=== PATIENT | male | born 1980 | race Caucasian/White ===

== ENCOUNTER 2017-04-07 08:26 | Emergency (ER) | payer SELFPAY ==
[2017-04-07 08:49] VITALS: BP 163/102
[2017-04-07] MEDS ORDERED: DOXYcycline CAP(*) 100 MG PO ONE (09:58)
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
== END 2017-04-07 10:15 | disposition home or self-care (01) ==
LOC: UCEAST 08:26
DX: S80.262A Insect bite (nonvenomous), left knee, initial encounter (principal); W57.XXXA Bitten or stung by nonvenomous insect and other nonvenomous arthropods, initial encounter; Y93.9 Activity, unspecified; Y99.9 Unspecified external cause status; M77.12 Lateral epicondylitis, left elbow
CPT/HCPCS: 99212; A9270-GY; G0463

== ENCOUNTER 2017-07-07 07:10 | Emergency (ER) | payer MEDICAID ==
[2017-07-07 07:22] VITALS: BP 153/104
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
== END 2017-07-07 07:42 | disposition home or self-care (01) ==
LOC: UCEAST 07:10
DX: M54.42 Lumbago with sciatica, left side (principal); I10 Essential (primary) hypertension; Z88.6 Allergy status to analgesic agent
CPT/HCPCS: 99211; G0463

== ENCOUNTER 2017-11-03 09:56 | Emergency (ER) | payer SELFPAY ==
--- NOTE | 2017-11-03 11:47 | RAD ---
INDICATION: Right shoulder injury. TECHNIQUE: 4 views of the right shoulder were obtained. FINDINGS: There appears to be mild widening of the acromioclavicular joint. There are coracoclavicular space appears maintained. No fracture is seen. IMPRESSION: POSSIBLE AC SEPARATION.
[2017-11-03 12:33] VITALS: BP 162/100
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
== END 2017-11-03 12:32 | disposition home or self-care (01) ==
LOC: UCEAST 09:56
DX: S43.421A Sprain of right rotator cuff capsule, initial encounter (principal); W00.0XXA Fall on same level due to ice and snow, initial encounter; Y93.9 Activity, unspecified
CPT/HCPCS: 99213; G0463

== ENCOUNTER 2017-12-14 07:05 | Emergency (ER) | payer OTHER ==
[2017-12-14] MEDS ORDERED: Ketorolac INJ* 60 MG/2 ML VIAL IM ONE (07:37)
--- NOTE | 2017-12-14 08:21 | RAD ---
Indication: History of RIGHT AC joint separation November 02, 2017. Reinjury this morning. Limitation in abduction. Comparison: November 03, 2017 Technique: Internal rotation AP, external rotation Grashey, scapular Y, axillary views RIGHT shoulder Report: Unchanged mild transverse diastases at the AC joint. Normal coracoclavicular distance. Mild subchondral sclerosis and cystic change at the distal margin of the clavicle. Normal glenohumeral joint alignment. Negative for fracture. Unremarkable soft tissue contours. IMPRESSION: Unchanged finding of low-grade AC joint separation. Mild degenerative arthropathy at the AC joint.
[2017-12-14 08:57] VITALS: BP 171/100
--- NOTE | 2017-12-14 18:06 | ED ---
Mahamed Puga Nilda, scribed for Warren Akers MD on 12/14/17 at 0730 . Upper Extremity Pain - HPI Summary HPI Summary: This patient is a 37 year old M presenting to [facility] with a chief complaint of constant severe right shoulder pain and limited ROM s/p feeling AC tear while moving a box this morning. The patient rates the pain 8/10 in severity. Symptoms aggravated by movement and alleviated by rest. Pt states he AC of R-shoulder a couple weeks ago. He was seen by PCP for his shoulder, but denies seeing Ortho or PT since pain had decreased. Pt states he thought his shoulder was strengthening and healing with exercise. - History of Current Complaint Chief Complaint: EDShoulderClavicleInj Stated Complaint: SHOULER INJURY Time Seen by Provider: 12/14/17 07:14 Hx Obtained From: Patient Mechanism Of Injury: Other - moving box and felt AC tear Onset/Duration: Started Minutes Ago, Still Present Timing: Constant Severity Currently: Severe Pain Location: Shoulder - right Aggravating Factor(s): Movement Alleviating Factor(s): Rest Associated Signs & Symptoms: Positive: Other - limited R-shoulder ROM secondary to pain. Related History: Similar Episode/Dx As - a few weeks ago tore AC - Allergies/Home Medications Allergies/Adverse Reactions: Allergies Allergy/AdvReac Type Severity Reaction Status Date / Time Acetaminophen [From Tylenol] AdvReac Mild Vomiting Verified 11/03/17 10:33 PMH/Surg Hx/FS Hx/Imm Hx Endocrine/Hematology History: Denies: Hx Diabetes, Hx Thyroid Disease Cardiovascular History: Denies: Hx Hypertension Respiratory History: Denies: Hx Asthma, Hx Chronic Obstructive Pulmonary Disease (COPD) GI History: Denies: Hx Ulcer Infectious Disease History: No Infectious Disease History: Denies: Hx Clostridium Difficile, Hx Hepatitis, Hx Human Immunodeficiency Virus (HIV), Hx of Known/Suspected MRSA, Hx Shingles, Hx Tuberculosis, Hx Known/ Suspected VRE, Hx Known/Suspected VRSA, History Other Infectious Disease, Traveled Outside the [place] in Last 30 Days - Family History Known Family History: Positive: Cardiac Disease - unsure, Hypertension Negative: Diabetes - Social History Alcohol Use: None Substance Use Type: Reports: None Smoking Status (MU): Never Smoked Tobacco Review of Systems Negative: Shortness Of Breath Positive: Decreased ROM - R-shoulder secondary to pain, Other - pain in R- shoulder All Other Systems Reviewed And Are Negative: Yes Physical Exam - Summary Physical Exam Summary: VITAL SIGNS: Reviewed. GENERAL: Patient is a well-developed and nourished male who is lying comfortable in the stretcher. Patient is not in any acute respiratory distress. HEAD AND FACE: No signs of trauma. No ecchymosis, hematomas or skull depressions. No sinus tenderness. EYES: PERRLA, EOMI x 2, No injected conjunctiva, no nystagmus. EARS: Hearing grossly intact. Ear canals and tympanic membranes are within normal limits. MOUTH: Oropharynx within normal limits. NECK: Supple, trachea is midline, no adenopathy, no JVD, no carotid bruit, no c- spine tenderness, neck with full ROM. CHEST: Symmetric, no tenderness at palpation LUNGS: Clear to auscultation bilaterally. No wheezing or crackles. CVS: Regular rate and rhythm, S1 and S2 present, no murmurs or gallops appreciated. ABDOMEN: Soft, non-tender. No signs of distention. No rebound no guarding, and no masses palpated. Bowel sounds are normal. EXTREMITIES: Decreased ROM in right shoulder secondary to pain, good capillary refill, good pulse, good strength NEURO: Alert and oriented x 3. No acute neurological deficits. Speech is normal and follows commands. SKIN: Dry and warm Triage Information Reviewed: Yes Vital Signs On Initial Exam: Initial Vitals Temp Pulse Resp BP Pulse Ox 98.4 F 95 15 180/100 98 12/14/17 07:16 12/14/17 07:16 12/14/17 07:16 12/14/17 07:16 12/14/17 07:16 Vital Signs Reviewed: Yes Diagnostics - Vital Signs Vital Signs Temp Pulse Resp BP Pulse Ox 12/14/17 07:16 98.4 F 95 15 180/100 98 - Laboratory Lab Statement: Any lab studies that have been ordered have been reviewed, and results considered in the medical decision making process. - Radiology Shoulder XR Radiology Interpretation Completed By: Radiologist - Shoulder XR, per radiologist, reveals unchanged finding of low-grade AC joint separation. Mild degenerative arthorpathy at the AC joint. Dr. Akers has reviewed this radiology report. Re-Evaluation - Re-Evaluation First Eval Re-Evaluation Time: 08:45 Comment: Reviewed D/C plan. Pt understands and is agreeable to D/C. Course/Dx - Course Assessment/Plan: This patient is a 37 year old M presenting to [facility] with a chief complaint of constant severe right shoulder pain and limited ROM s/p feeling "AC tear" while moving a box this morning. The patient rates the pain 8/ 10 in severity. Symptoms aggravated by movement and alleviated by rest. Pt states he AC of R-shoulder a couple weeks ago. He was seen by PCP for his shoulder, but denies seeing Ortho or PT since pain had decreased. Pt states he thought his shoulder was strengthening and healing with exercise. Pending shoulder XR. Shoulder XR, per radiologist, reveals unchanged finding of low- grade AC joint separation. Mild degenerative arthropathy at the AC joint. Dr. Akers has reviewed this radiology report. Pt found to have low grade AC joint separation. Pt was given Toradol. Pt feels a little better in ED. Pt is in sling. He will be D/C home with follow up with orthopedics and given prescription for Naproxen. Pt understands and is agreeable with this plan. - Diagnoses Differential Diagnosis/HQI/PQRI: Positive: Arthritis, Bursitis, Contusion, Fracture (Closed), Strain, Sprain Provider Diagnoses: Acromioclavicular joint separation Discharge - Discharge Plan Condition: Stable Disposition: HOME Prescriptions: Naproxen [Naproxen 500 mg] 500 mg PO Q8H PRN #20 tab PRN Reason: Pain Patient Education Materials: Acromioclavicular Separation (ED) Forms: *Work Release Referrals: Jameel Chamorro MD [Medical Doctor] - 3 Days Additional Instructions: RETURN TO THE EMERGENCY DEPARTMENT FOR CHANGING OR WORSENING SYMPTOMS. The documentation as recorded by the Mahamed ruffin Nilda accurately reflects the service I personally performed and the decisions made by Oswald smith Walter, MD.
== END 2017-12-14 08:56 | disposition home or self-care (01) ==
LOC: ED 07:05
DX: S43.101A Unspecified dislocation of right acromioclavicular joint, initial encounter (principal); X58.XXXA Exposure to other specified factors, initial encounter; Z88.6 Allergy status to analgesic agent
CPT/HCPCS: 96372; 99282; J1885

== ENCOUNTER 2018-04-16 11:12 | Emergency (ER) | payer SELFPAY ==
[2018-04-16 11:28] VITALS: BP 169/118
--- NOTE | 2018-04-16 13:00 | UC ---
Rectal Pain HPI - HPI Summary HPI Summary: 37 yo male states that he went to sit down on a toilet bowel at work today and has BRBPR No stool was passed He states that he has felt perianal irritation x days and felt it was due to the rough toilet paper at work NO ABD PAIN NO CONSTIPATION NO Hx HEMORRHOIDs NO N/V/D not lightheaded or weak no F/C - History Of Current Complaint Chief Complaint: UCAbdominalPain Stated Complaint: RECTAL BLEEDING Time Seen by Provider: 04/16/18 11:51 Hx Obtained From: Patient Onset/Duration: Sudden Onset Timing: Constant Severity Initially: Moderate Severity Currently: Moderate Pain Intensity: 4 Pain Scale Used: 0-10 Numeric Location Of Pain: Gluteal - Had had left gluteal pain x 3 days/no swelling/ asbscess Character: Itching Aggravating Factor(s): Sitting Alleviating Factor(s): Nothing Associated Signs And Symptoms: Positive: Blood W/O Stool - Allergies/Home Medications Allergies/Adverse Reactions: Allergies Allergy/AdvReac Type Severity Reaction Status Date / Time acetaminophen Allergy Vomiting Verified 04/16/18 11:29 Home Medications: Home Medications Ibuprofen TAB* [Advil TAB*] 200 mg PO Q6H PRN 04/16/18 [History Confirmed ] PMH/Surg Hx/FS Hx/Imm Hx Previously Healthy: Yes - Surgical History Surgical History: None - Family History Known Family History: Positive: Cardiac Disease - unsure, Hypertension Negative: Diabetes - Social History Alcohol Use: Rare Substance Use Type: None Smoking Status (MU): Former Smoker When Did the Patient Quit Smoking/Using Tobacco: 20 yrs ago Review of Systems Constitutional: Negative Skin: Negative Eyes: Negative ENT: Negative Respiratory: Negative Cardiovascular: Negative Gastrointestinal: Other - rectal bleeding Genitourinary: Negative Motor: Negative Neurovascular: Negative Musculoskeletal: Negative Neurological: Negative Psychological: Negative Is Patient Immunocompromised?: No All Other Systems Reviewed And Are Negative: Yes Physical Exam Triage Information Reviewed: Yes Appearance: Well-Appearing, No Pain Distress, Well-Nourished Vital Signs: Initial Vital Signs Temp 95.4 F 04/16/18 11:22 Pulse 90 04/16/18 11:22 Resp 16 04/16/18 11:22 BP 169/118 04/16/18 11:22 Pulse Ox 95 04/16/18 11:22 Vital Signs Reviewed: Yes Eyes: Positive: Conjunctiva Clear ENT: Positive: Hearing grossly normal, Pharynx normal, TMs normal, Uvula midline. Negative: Pharyngeal erythema, Nasal congestion, Nasal drainage, Tonsillar swelling, Tonsillar exudate, Trismus, Muffled voice, Hoarse voice Neck: Positive: Supple, Nontender, No Lymphadenopathy Respiratory: Positive: Lungs clear, Normal breath sounds, No respiratory distress, No accessory muscle use Cardiovascular: Positive: RRR, No Murmur Abdomen Description: Positive: Nontender, No Organomegaly, Soft, Other: - no abscess, suspect hemorrhoid,. Negative: CVA Tenderness (R), CVA Tenderness (L) Musculoskeletal: Positive: No Edema Neurological: Positive: Alert Psychological Exam: Normal Skin Exam: Normal Rectal Pain Course/Dx - Course Course Of Treatment: I advised patient I was not 100% sure of the diagnosis, suggested GI evaluation for anoscopy or sigmoidoscopy - Differential Dx/Diagnosis Provider Diagnoses: bright red rectal bleeding of uncertain cause Discharge - Sign-Out/Discharge Documenting (check all that apply): Discharge/Admit/Transfer - Discharge Plan Condition: Stable Disposition: HOME Prescriptions: Hydrocortisone SUPP* [Anusol HC Supp*] 25 mg NH BID #14 supp Patient Education Materials: Hemorrhoids (ED), Rectal Bleeding (ED) Forms: *Work Release Referrals: [facility] [place] PHYSICIAN REFERRAL [Outside] - 2 Weeks (Your blood pressure is high today. It may be due to anxiety over today's complaint. I suggest you find a concrete pavement installer and get it followed up) Joe Sparrow MD [Medical Doctor] - As Soon As Possible (Dr Sparrow is not precision aircraft systems assembler today but I suggest you call office Tues AM and request first available appt) Additional Instructions: to ER for worsening rectal bleeding, abd pain, fever severe buttock pain or swelling - Billing Disposition and Condition Condition: STABLE Disposition: HOME Images Perineum Male: 1 - bluish area/oozing blood/suspect hemoorhoid
== END 2018-04-16 12:42 | disposition home or self-care (01) ==
LOC: UCEAST 11:12
DX: K62.5 Hemorrhage of anus and rectum (principal); Z88.6 Allergy status to analgesic agent; Z87.891 Personal history of nicotine dependence
CPT/HCPCS: 99212; G0463

== ENCOUNTER 2018-05-15 09:31 | Day surgery (SDC) | payer OTHER ==
--- NOTE | 2018-04-14 06:56 | HP ---
PREOPERATIVE HISTORY AND PHYSICAL: DATE OF ADMISSION/SURGERY: 04/24/18 DATE OF OFFICE VISIT: 04/13/18 ATTENDING SURGEON: Rossi Fang MD * (DICTATED BY EZRA SANDERS) PROCEDURE: Right shoulder arthroscopic decompression, debridement, subpectoral biceps tenodesis and excision distal clavicle. CHIEF COMPLAINT: Right shoulder. HISTORY OF PRESENT ILLNESS: Brandon is a 37-year-old male who presents to the clinic for right shoulder pain due to AC arthritis and biceps tendonitis and impingement. He failed conservative measures and therefore agreed to undergo a right shoulder arthroscopic decompression, debridement, and subpectoral biceps tenodesis, excision of distal clavicle with Dr. Fang on 04/24/18. PAST MEDICAL HISTORY: Hypertension, history of MRSA 6 years ago. PAST SURGICAL HISTORY: Denies prior surgery. MEDICATION: Ibuprofen 200 mg 2 to 3 tabs every 6 hours as needed for pain. ALLERGIES: TYLENOL. FAMILY HISTORY: Positive for hypertension and cancer. SOCIAL HISTORY: He lives with his spouse. He denies tobacco or alcohol use. He is right hand dominant. REVIEW OF SYSTEMS: A 14-point review of systems was reviewed with the patient. Positive for current complaint; otherwise, negative. He does have a history of MRSA 6 years ago. He denies chest pain, shortness of breath, fever, chills, history of bleeding disorder, history of DVT or PE. PHYSICAL EXAMINATION GENERAL: A 37-year-old well-developed, well-nourished female, in no acute distress. Alert and oriented x3. Appropriate mood and affect. Appropriate balance and coordination of the upper extremities. VITAL SIGNS: Height 69, weight 237, blood pressure 140/84, respiratory rate 18 , temperature 97, BMI 35. HEENT: Normocephalic, atraumatic. PERRLA. Throat: Clear. NECK: Supple. PULMONARY: Lungs clear to auscultation bilaterally. No wheezing, rhonchi, or rales. CARDIO: Regular rate and rhythm. S1, S2. No murmurs, gallops, or rubs. No edema. ABDOMEN: Positive bowel sounds. Soft, nontender. NEUROLOGIC: Alert and oriented x3. Cranial nerves grossly intact. MUSCULOSKELETAL: Right upper extremity, skin is intact. No warmth or erythema. Tender over the bicipital groove, mild tender over the subacromial space in the AC joint. Forward flexion 160, abduction 150. External rotation 35, internal rotation T8. +5/5 strength with rotator cuff testing with mild pain. Positive impingement, Speeds, Kaufman-Julius, [place]. +2 radial pulse. Sensation is intact to light touch distally. DIAGNOSTIC STUDIES: X-rays and MRIs reveal grade 2 AC joint separation, impingement fluid in the bicipital groove. IMPRESSION: Right shoulder impingement, biceps tendonitis and acromioclavicular joint arthritis. PLAN: The patient is scheduled to undergo a right shoulder arthroscopic decompression, debridement, subpectoral biceps tenodesis, and excision distal clavicle with Dr. Fang on 04/24/18. He will follow up in 10 to 14 days postop for followup and suture removal. Oxycodone will be used for postop pain management. EZRA SANDERS [id number]/[facility] #: [id number] MTDSoraya
--- NOTE | 2018-05-09 21:03 | HP ---
HISTORY AND PHYSICAL UPDATE: DATE OF ADMISSION/SURGERY: 05/15/18 [facility] DATE OF OFFICE VISIT: 05/09/18 ATTENDING SURGEON: Rossi Fang MD * (DICTATED BY EZRA SANDERS) PROCEDURE: Right shoulder arthroscopic decompression, debridement, subpectoral biceps tenodesis, and excision of distal clavicle. CHIEF COMPLAINT: Right shoulder pain. HISTORY OF PRESENT ILLNESS: Brandon is a 37-year-old male, who presents to the clinic for right shoulder pain due to AC joint arthritis, biceps tendonitis and impingement. He failed conservative measures and therefore agreed to undergo right shoulder arthroscopic decompression, debridement, subpectoral biceps tenodesis, and excision of distal clavicle with Dr. Fang on 05/15/18. PAST MEDICAL HISTORY: Hypertension, history of MRSA 6 years ago. PAST SURGICAL HISTORY: Denies prior surgeries. MEDICATIONS: Ibuprofen 200 mg 2 to 3 tabs every 6 hours as needed for pain. ALLERGIES: TYLENOL. FAMILY HISTORY: Positive for hypertension and cancer. SOCIAL HISTORY: He lives with his spouse. 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 He denies tobacco or alcohol use. He is right-hand dominant. REVIEW OF SYSTEMS: A 14-point review of systems was reviewed with the patient. Positive for current complaint, otherwise negative. He does have a history of MRSA 6 years ago. Denies chest pain, shortness of breath, fever, chills, history of bleeding disorder, history of DVT or PE. PHYSICAL EXAMINATION GENERAL: A 37-year-old well-developed, well-nourished male, in no acute distress. Alert and oriented x3. Appropriate mood and affect. Appropriate balance and coordination of the upper extremities. VITAL SIGNS: Height 69, weight 237, blood pressure 124/60, respiratory rate 18 , BMI 35.0. HEENT: Normocephalic, atraumatic. PERRLA. Throat clear. NECK: Supple. PULMONARY: Lungs are clear to auscultation bilaterally. No wheezing, rhonchi, or rales. CARDIO: Regular rate and rhythm. S1, S2. No murmurs, gallops, or rubs. No edema. ABDOMEN: Positive bowel sounds. Soft, nontender. NEURO: Alert and oriented x3. Cranial nerves grossly intact. Sensation intact to light touch. MUSCULOSKELETAL: Right upper extremity, skin is intact. No warmth or erythema. Tenderness over the bicipital groove, mild tenderness over the subacromial space in the AC joint. Forward flexion to 160, abduction to 150, external rotation to 75, internal rotation to T8. +5/5 strength with rotator cuff testing with mild pain. Positive impingement, Speed, Kaufman-Julius, [place]. +2 radial pulse. Sensation intact to light touch distally. DIAGNOSTIC STUDIES: X-ray and MRI revealed grade 2 AC joint separation, impingement and fluid in the bicipital groove. IMPRESSION: Right shoulder impingement, biceps tendonitis, and AC joint arthritis. PLAN: The patient is scheduled to undergo a right shoulder arthroscopic decompression, debridement, subpectoral biceps tenodesis, and excision of distal clavicle with Dr. Fang on 05/15/18. He will follow up 10 to 14 days postop for followup and suture removal. Oxycodone will be used for postop pain management and Keflex for antibiotic prophylaxis. He will start therapy 10 days after surgery. He was given a script and protocol today in clinic. EZRA SANDERS [id number]/[facility] #: [id number] JEANNE
[~2018-05-15 09:31] MED LIST: Buffered Lidocaine 0.9% SYRIN* 5 ML/SYR SYRINGE INTRADERM ONE; Dexamethasone IV* 4 MG/ML 1 ML (4 MG) IV SLOW PU ONE; Famotidine IV* 10 MG/ML 2 ML (20 mg) IV ONE; Ondansetron ODT TAB* 4 MG PO ONE
[2018-05-15] MEDS ORDERED: Famotidine IV* 10 MG/ML 2 ML (20 mg) ONE (09:43)
[2018-05-15] MEDS ORDERED: Dexamethasone IV* 4 MG/ML 1 ML (4 MG) ONE (09:43)
[2018-05-15] MEDS ORDERED: ceFAZolin 2 GM PREMIX (*) 2 GM/50 ML BAG IVPB ONE (09:43)
[2018-05-15] MEDS ORDERED: Ondansetron ODT TAB* 4 MG ONE (09:44)
[2018-05-15] MEDS ORDERED: Bupivacaine 0.5% SDV PF* 30ML VIAL ONE (10:14)
[2018-05-15] MEDS ORDERED: fentaNYL* 50 MCG/ML 2 ML VIAL (100 MCG VIAL) ONE ×2 (10:34→10:58)
[2018-05-15] MEDS ORDERED: Midazolam* 1 MG/ML 5 ML VIAL (5 MG) ONE (10:34)
[2018-05-15] MEDS ORDERED: ROPIVACAINE 5 MG/ML 30 ML BTL (0.5%) ONE (10:34)
[2018-05-15] MEDS ORDERED: Atracurium* 10 MG/ML 10 ML VIAL ONE (10:35)
[2018-05-15] MEDS ORDERED: Ondansetron INJ* 2 MG/ML VIAL IV PRN (11:30)
[2018-05-15] MEDS ORDERED: oxyCODONE TAB* 5 MG TAB PO PRN (11:30)
[2018-05-15] MEDS ORDERED: DiMENhydriNATE IV* 50 MG/ML VIAL IV PUSH PRN (11:30)
[2018-05-15] MEDS ORDERED: fentaNYL* 50 MCG/ML 2 ML VIAL (100 MCG VIAL) IV PRN (11:30)
[2018-05-15] MEDS ORDERED: Naloxone* 0.4 MG/ML 1 ML VIAL IV PRN (11:30)
[2018-05-15] MEDS ORDERED: HYDROmorphone INJ* 1 MG/ML CARPUJECT SYRINGE IV PRN (11:30)
[2018-05-15] MEDS ORDERED: methylPREDNISolone ACETATE 80* 80 MG/ML 1 ML VIAL ONE (11:42)
[2018-05-15] MEDS ORDERED: DiMENhydriNATE IV* 50 MG/ML VIAL ONE (12:37)
[2018-05-15 13:14] VITALS: BP 1170/97
--- NOTE | 2018-05-16 10:57 | OP ---
DATE OF OPERATION: 05/15/18 - [facility] DATE OF : 78 SURGEON: Rossi Fang MD ELECTRIFICATION ADVISER: EZRA Garzon. An imaging assistant was needed for the entirety of the case to help with positioning, retraction, and was utilized all portions of the case. ANESTHESIOLOGIST: Dr. Miller. ANESTHESIA: Interscalene block. PRE-OP DIAGNOSES: Right shoulder impingement, acromioclavicular joint arthritis , and bicipital tendonitis. POST-OP DIAGNOSES: Right shoulder impingement, acromioclavicular joint arthritis, and bicipital tendonitis. OPERATIVE PROCEDURE: Right shoulder arthroscopy with: 1. Extensive glenohumeral debridement including debridement of the anterior, superior, and posterior labrum. 2. Subacromial decompression with acromioplasty. 3. Distal clavicle excision. 4. Subpectoral biceps tenodesis. 5. Subacromial injection with 80 mg of Depo-Medrol. COMPLICATIONS: None. ESTIMATED BLOOD LOSS: Minimal. IMPLANTS USED: [place] and Nephew 2.8 mm Q-Fix. INDICATIONS: Brandon Muse is a 37-year-old male who has had persistent shoulder pain from work-related injury. He has failed conservative management including physical therapy, anti-inflammatories, ice, heat and injection. He is elected to proceed with surgery. Risks and benefits of surgery were discussed at length included, but not limited to bleeding, infection, damage to nerves, vessels, surrounding structures, wound nonhealing, persistent pain, need for further surgery, scarring, stiffness, incomplete relief of symptoms, risk of anesthesia. DESCRIPTION OF PROCEDURE: The patient was greeted in the preoperative area by the attending surgeon. Correct extremity was marked and consent was confirmed. The patient was then brought back to the operating suite where he was placed in the supine position on the operating table. He then underwent interscalene nerve block by the anesthesiologist after which he was appropriately positioned in the left lateral decubitus position with all bony prominences padded. An axillary roll was placed and secured with a pegboard. Right arm was draped unsterilely with 10 pounds of traction. The left shoulder was then prepped and draped in the usual sterile fashion beginning with chlorhexidine soap, scrub, and alcohol wipe and a final prep with ChloraPrep. After appropriate surgical pause indicating side, site, procedure, and administration of antibiotics, standard postero-lateral portal was made sharply with 11 blade. The scope was introduced into the joint, joint was examined. There was abundant hyperemia and erythema in the joint. There was evidence of some mild fraying of the superior labrum, but the biceps tendon itself had longitudinal tearing and was poor quality. The supraspinatus was intact. Infraspinatus was intact. Subscap was intact. Inferior recess was intact but there was abundant synovitis and inflammation, tearing in the anterior, posterior, and superior labrum. The anterior portal was made in an outside fashion. Shaver was used to debride back the anterior, posterior, and superior labrum. Glenohumeral joint had grade 0 to 1 changes. The biceps was then tenotomized for later tenodesis. The scope was positioned in the subacromial space and subacromial space was examined. There was mild amount of bursitis mostly at the lateral and posterior aspect but the rotator cuff appeared to be intact. The lateral portal was made in an outside-in fashion. Shaver was used to debride back the bursa laterally and posteriorly. The undersurface of the acromion had anterolateral spur. This was debrided back using 4-0 oval jade to the level of the AC joint. Once the acromioplasty was complete, attention was directed to the distal clavicle. The jade was brought into the anterior portal. The distal 8 mm of the clavicle were then removed under arthroscopic visualization with care to prevent any damage to the CC ligaments. Final images were obtained. There was calcified disc that was also removed at the AC joint. All loose fluid and debris was removed from the portion of the case. Attention was directed back to the subacromial space. An 18- gauge needle was placed under arthroscopic visualization. All fluid and debris was removed. Attention was directed to the biceps. The bed was air planed to the right side. The anterior aspect of the shoulder was prepped again using ChloraPrep. A 15-blade was used to make an incision in line of the biceps tendon encompassing the inferior two thirds was the pec. Soft tissues were carefully dissected to expose the pec tendon. The remainder of the dissection was done bluntly. The pec was then elevated and the bicipital groove was palpated. The biceps was found and brought through through the wound and found to have abundant synovitis, tendinosis, and tendonitis. The groove was then prepared in the usual fashion with electrocautery device with red ball rasp and osteotome. Q-Fix guide was then placed. This allowed for bony bleeding bed. The Q-Fix drill guide was then placed and drilled unicortically. The Q-Fix was deployed with excellent purchase. The sutures were then passed through the tendon approximately 1 cm proximal to the musculotendinous junction in a Kavin-Robin type configuration. The excess biceps was excised and the biceps were shuttled back to the wound. The wounds were copiously irrigated with sterile saline. The anterior wound was closed in layers using 2-0 Vicryl, 3-0 Monocryl. The portals were closed with 3-0 nylon. Sterile dressings were applied. The anterior wound was injected with 0.5% Marcaine. Sterile dressings were applied. Cryo/Cuff and UltraSling were applied. He was awoken from anesthesia and transferred to PACU in stable condition. POSTOPERATIVE PLAN: He will be nonweightbearing. He will be in the sling for 4 weeks. He will be discharged on pain medication, antibiotics. I will see the patient back in 10 to 14 days. DVT prophylaxis considered, but deferred due to no previous personal or family history. [id number]/[facility] #: [id number] [facility]ALSoraya
== END 2018-05-15 12:36 | disposition home or self-care (01) ==
LOC: OREAST 09:31
PROVIDERS: ATTEND Orthopaedic Surgery
DX: M75.41 Impingement syndrome of right shoulder (principal); M75.21 Bicipital tendinitis, right shoulder; M19.011 Primary osteoarthritis, right shoulder; S43.51XA Sprain of right acromioclavicular joint, initial encounter; S46.101A Unspecified injury of muscle, fascia and tendon of long head of biceps, right arm, initial encounter; X58.XXXA Exposure to other specified factors, initial encounter; Y93.89 Activity, other specified; Y92.89 Other specified places as the place of occurrence of the external cause; Y99.9 Unspecified external cause status; G89.18 Other acute postprocedural pain; I10 Essential (primary) hypertension
CPT/HCPCS: 88304; A9270-GY; C1776; J0690; J1040; J1100; J1240; J2250; J2795; J3010

== ENCOUNTER 2019-02-02 13:32 | Emergency (ER) | payer OTHER ==
[2019-02-02 14:01] VITALS: BP 151/98
--- NOTE | 2019-02-02 14:10 | UC ---
Shoulder Pain HPI - HPI Summary HPI Summary: pt presents with c/o chronic right shoulder pain s/p rotator cuff repair last summer(2017) by Dr. Alvarado. - History of Current Complaint Chief Complaint: UCUpperExtremity Stated Complaint: R SHOULDER INJURY Time Seen by Provider: 02/02/19 14:03 Hx Obtained From: Patient Onset/Duration: Gradual Onset, Lasting Days, Still Present Timing: Constant Severity Initially: Mild Severity Currently: Moderate Location Of Pain: Is Discrete @ - rught shoulder Pain Intensity: 8 Character: Dull, Aching Aggravating Factor(s): Movement Alleviating Factor(s): Rest Associated Signs And Symptoms: Positive: Negative Related History: Dominant Hand Right - Risk Factors Non-Orthopedic Risk Factor: Negative DVT Risk Factors: Negative Septic Arthritis Risk Factor: Negative - Allergies/Home Medications Allergies/Adverse Reactions: Allergies Allergy/AdvReac Type Severity Reaction Status Date / Time acetaminophen Allergy Intermediate Vomiting Verified 02/02/19 13:56 PMH/Surg Hx/FS Hx/Imm Hx Previously Healthy: Yes - Surgical History Surgical History: Yes Surgery Procedure, Year, and Place: shoulder surgery rt 2018 - Family History Known Family History: Positive: Cardiac Disease - unsure, Hypertension Negative: Diabetes - Social History Occupation: Employed Full-time Lives: With Family Alcohol Use: Rare Substance Use Type: Marijuana Substance Use Comment - Amount & Last Used: weekly Smoking Status (MU): Former Smoker Amount Used/How Often: smoked for 14 years , 1 pack per week Have You Smoked in the Last Year: No When Did the Patient Quit Smoking/Using Tobacco: 2000 Review of Systems All Other Systems Reviewed And Are Negative: Yes Constitutional: Positive: Negative Skin: Positive: Negative Eyes: Positive: Negative ENT: Positive: Negative Respiratory: Positive: Negative Cardiovascular: Positive: Negative Gastrointestinal: Positive: Negative Genitourinary: Positive: Negative Motor: Positive: Decreased ROM - right shoulder, Weakness - right shoulder Neurovascular: Positive: Negative Musculoskeletal: Positive: Arthralgia, Decreased ROM, Myalgia Neurological: Positive: Negative Psychological: Positive: Negative Is Patient Immunocompromised?: No Physical Exam Triage Information Reviewed: Yes Appearance: Well-Appearing Vital Signs: Initial Vital Signs Temp 97.9 F 02/02/19 13:49 Pulse 89 02/02/19 13:49 Resp 16 02/02/19 13:49 BP 151/98 02/02/19 13:49 Pulse Ox 99 02/02/19 13:49 Vital Signs Reviewed: Yes Eye Exam: Normal ENT Exam: Normal Neck exam: Normal Respiratory: Positive: No respiratory distress Musculoskeletal: Positive: Strength Limited @ - right shoulder, ROM Limited @ - right shoulder Neurological Exam: Normal Psychological Exam: Normal Skin Exam: Normal Shoulder Course/Dx - Course Course Of Treatment: Pt reports he is seeking a work note and has an appointment with Dr. alvarado on - Differential Dx/Diagnosis Differential Diagnosis/HQI/PQRI: Contusion, Rotator Cuff Injury, Sprain Provider Diagnosis: Chronic right shoulder pain Discharge - Sign-Out/Discharge Documenting (check all that apply): Patient Departure All imaging exams completed and their final reports reviewed: No Studies - Discharge Plan Condition: Stable Disposition: HOME Prescriptions: Cyclobenzaprine TAB* [Flexeril 10 MG TAB*] 10 mg PO TID PRN #15 tab PRN Reason: Pain predniSONE TAB* [Deltasone 10 MG TAB*] 30 mg PO DAILY #12 tab Patient Education Materials: Shoulder Pain (ED) Forms: *Work Release Referrals: Jameel Phillips MD [Primary Care Provider] - If Needed Rossi Alvarado MD [Medical Doctor] - As Soon As Possible - Billing Disposition and Condition Condition: STABLE Disposition: Home
== END 2019-02-02 14:19 | disposition home or self-care (01) ==
LOC: UCEAST 13:32
DX: M25.511 Pain in right shoulder (principal); G89.29 Other chronic pain; Z87.891 Personal history of nicotine dependence; Z88.8 Allergy status to other drugs, medicaments and biological substances
CPT/HCPCS: 99212; G0463

== ENCOUNTER 2019-08-29 09:10 | Emergency (ER) | payer OTHER ==
--- NOTE | 2019-08-29 09:53 | UC ---
Cardiac HPI - HPI Summary HPI Summary: Onset of chest pain x 4 days ago at work, present steadily, sometimes worse. Pain is sharp and worse with a deep breath. Hx of hypertension, stopped lisinopril -HCTZ about a month ago because of lightheadedness and dizziness. Takes propranolol for BP and suppression of arrhythmia. 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 He has gained considerable weight over the past several years--states close to 100 pounds. he does not know his cholesterol level, has not smoked, has FH of hypertension. - History of Current Complaint Chief Complaint: UCCardiac Stated Complaint: CHEST PAIN Time Seen by Provider: 08/29/19 09:42 Hx Obtained From: Patient Onset/Duration: Gradual Onset, Lasting Days - 4 Timing: Constant Initial Severity: Mild Current Severity: Mild Pain Intensity: 0 Chest Pain Location: Left Lateral Character: Irregular - hx of arrhythmia and some extra beats historically. PVC observed while here x 1 only, Sharp/Stabbing Aggravating Factor(s): Deep Breaths Alleviating Factor(s): Rest Associated Signs & Symptoms: Positive: Chest Pain, Anxiety - admits to anxiety, has addressed with PMD in the past., SOB - on occasion. Negative: Headaches, Numbness, Weakness, Cough - Risk Factors Pulmonary Embolism Risk Factors: Negative Cardiac Risk Factors: Hypertension, Family History Atrial Fibrillation: Hypertension AMI/ACS Risk Factors: Obesity, Hypertension - Allergy/Home Medications Allergies/Adverse Reactions: Allergies Allergy/AdvReac Type Severity Reaction Status Date / Time acetaminophen Allergy Intermediate Vomiting Verified 02/02/19 13:56 Home Medications: Home Medications Propranolol HCl [Propranolol HCl ER] 80 mg PO DAILY 08/29/19 [History Confirmed 08/29/19] PMH/Surg Hx/FS Hx/Imm Hx - Additional Past Medical History Additional PMH: obesity Cardiovascular History: Hypertension - Surgical History Surgical History: Yes Surgery Procedure, Year, and Place: shoulder surgery rt 2018 - Family History Known Family History: Positive: Hypertension Negative: Diabetes - Social History Occupation: Employed Full-time Lives: Dormitory/Roommates Alcohol Use: Rare Substance Use Type: Marijuana Substance Use Comment - Amount & Last Used: rare Smoking Status (MU): Former Smoker Amount Used/How Often: smoked for 14 years , 1 pack per week Have You Smoked in the Last Year: No When Did the Patient Quit Smoking/Using Tobacco: 2000 Review of Systems All Other Systems Reviewed And Are Negative: Yes Constitutional: Positive: Negative Skin: Positive: Negative Eyes: Positive: Negative ENT: Positive: Negative Respiratory: Positive: Shortness Of Breath - at times, not currently Cardiovascular: Positive: Palpitations - has hx of PVC's, uses propranolol partly to suppress this., Chest Pain Gastrointestinal: Negative: Vomiting, Nausea Genitourinary: Positive: Negative Motor: Positive: Negative Neurovascular: Positive: Negative Musculoskeletal: Positive: Negative Neurological: Negative: Headache, Weakness Psychological: Positive: Negative Is Patient Immunocompromised?: No Physical Exam Triage Information Reviewed: Yes Appearance: No Pain Distress, Obese, Other: - anxious mood Vital Signs: Initial Vital Signs Temp 98.4 F 08/29/19 09:17 Pulse 81 08/29/19 09:17 Resp 18 08/29/19 09:17 BP 170/97 08/29/19 09:17 Pulse Ox 98 08/29/19 09:17 Eye Exam: Other - Normal fundi on exam Eyes: Positive: Conjunctiva Clear ENT: Positive: Pharynx normal Neck: Positive: Supple, Nontender, No Lymphadenopathy Respiratory: Positive: Lungs clear, Normal breath sounds Cardiovascular: Positive: RRR, No Murmur Abdomen Description: Positive: Nontender, No Organomegaly, Soft Bowel Sounds: Positive: Present Musculoskeletal Exam: Normal Neurological Exam: Normal Neurological: Positive: Alert, Muscle Tone Normal Psychological Exam: Normal Skin Exam: Normal Skin: Positive: Other - no edme Diagnostics - EKG Cardiac Rate: NL Cardiac Rhythm: Sinus: Normal Ectopy: PVCs - seen x 1 on monitor, no runs ST Segment: Normal - Assessment/Plan Course Of Treatment: Discussed risk factors of hypertension and obesity. He has a hx of snoring which has not been addressed with a sleep study, and a history of anxiety which causes him some distress. He is going to see Dr. Phillips regarding the above, and has already scheduled a visit to address BP control - Differential Diagnoses - Chest Pain Differential Diagnosis/HQI/PQRI: ACS, Chest Wall, Other: - anxiety - Clinical Impression Provider Diagnosis: Chest pain, Hypertension Discharge ED - Sign-Out/Discharge Documenting (check all that apply): Patient Departure All imaging exams completed and their final reports reviewed: No Studies - Discharge Plan Condition: Stable Disposition: HOME Patient Education Materials: Chest Pain (ED), Chronic Hypertension (ED), DASH Eating Plan (ED) Referrals: Jameel Phillips MD [Primary Care Provider] - Additional Instructions: Today's blood pressure is elevated to 170/96, second reading 170/100. Your EKG is normal and does not show evidence of heart strain. As reviewed, you are going to see Dr. Phillips from here to assess your blood pressure and discuss approach to weight loss and improving heart health. You will also review approach to anxiety, and discuss snoring. - Billing Disposition and Condition Condition: STABLE Disposition: Home
[2019-08-29 10:01] VITALS: BP 170/100
== END 2019-08-29 10:08 | disposition home or self-care (01) ==
LOC: UCEAST 09:10
DX: R07.9 Chest pain, unspecified (principal); I10 Essential (primary) hypertension; Z91.14 Patient's other noncompliance with medication regimen; Z82.49 Family history of ischemic heart disease and other diseases of the circulatory system; E66.9 Obesity, unspecified; Z87.891 Personal history of nicotine dependence
CPT/HCPCS: 99211; G0463